=== PATIENT | female | born 1935 | race Two or more races ===

== ENCOUNTER 2020-10-24 13:14 | Emergency (ER) | payer MEDICARE ==
[~2020-10-24] VITALS: Ht 144.8 cm; Wt 47.0 kg
[~2020-10-24 13:14] MED LIST: ATENOLOL25 MG PO; B COMPLETE PO; HYTONE2.5 % EX; LISINOP/HCTZ1 TA2 PO; SIMVASTATIN40 MG PO; VITAMIN B-12500 MCG PO
[2020-10-24 14:41] VITALS: BP 145/98
== END 2020-10-24 14:42 | disposition home or self-care (01) ==
LOC: ED 13:14
DX: S90.32XA Contusion of left foot, initial encounter (principal); S92.902A Unspecified fracture of left foot, initial encounter for closed fracture; I10 Essential (primary) hypertension; W01.0XXA Fall on same level from slipping, tripping and stumbling without subsequent striking against object, initial encounter; Y93.H2 Activity, gardening and landscaping; Y92.007 Garden or yard of unspecified non-institutional (private) residence as the place of occurrence of the external cause

== ENCOUNTER 2021-05-14 08:09 | Day surgery (SDC) | payer MEDICARE ==
[~2021-05-14] VITALS: Ht 144.8 cm; Wt 47.2 kg
[~2021-05-14 08:09] MED LIST changes: +B121000 MC1 PO; +D32000 UNIT PO; +LISINOPRIL10 MG PO; +OMEGA-31000 MG PO
[2021-05-14] MEDS ORDERED: PERCOCET 5/325M1 TAB PO (11:10)
[2021-05-14 11:42] VITALS: BP 170/81
== END 2021-05-14 12:10 | disposition home or self-care (01) ==
LOC: ORM 08:09
PROVIDERS: ATTEND Surgery
PROC: 06BY3ZC Excision of Hemorrhoidal Plexus, Percutaneous Approach (ICD-10-PCS; principal; 2021-05-14)
DX: K64.2 Third degree hemorrhoids (principal); K64.4 Residual hemorrhoidal skin tags; I10 Essential (primary) hypertension
CPT/HCPCS: C9290